=== PATIENT | female | born 1960 | race Caucasian/White ===

== ENCOUNTER → 2025-02-17 | Outpatient (CLI) | payer BC ==
--- NOTE | 2025-02-20 10:12 | CA ---
Transthoracic Echo Report Name: Fanny Galvez Age: 64 Gender: F : 1960 Exam Date: 02/17/2025 15:09 Exam Location: [facility] [facility] Ht (in): 66 Wt (lb): 175 Ordering Physician: Brett Castillo MD Attending/Referring Phys: Aminta Carter PAC Cardroom Supervisor Karmen Blankenship RDCS Procedure CPT: Indications: I51.7 Cardiomegaly Cardiac Hx: Technical Quality: Fair Contrast 1: Total Dose (mL): Contrast 2: Total Dose (mL): MEASUREMENTS (Male / Female) Normal Values 2D ECHO LV Diastolic Diameter PLAX 4.7 cm 4.2 - 5.9 / 3.9 - 5.3 cm LV Systolic Diameter PLAX 2.2 cm IVS Diastolic Thickness 0.9 cm 0.6 - 1.0 / 0.6 - 0.9 cm LVPW Diastolic Thickness 1.0 cm 0.6 - 1.0 / 0.6 - 0.9 cm LV Relative Wall Thickness 0.4 RV Internal Dim ED PLAX 3.4 cm LVOT Diameter 1.6 cm LV Diastolic Volume MOD BP 97.9 cm??? 67 - 155 / 56 - 104 cm??? LV Systolic Volume MOD BP 42.7 cm??? 22 - 58 / 19 - 49 cm??? LV Ejection Fraction MOD BP 56.4 % >= 55 % LV Cardiac Index MOD BP 1989.4 cm???/min???m??? LV Diastolic Volume MOD 4C 102.5 cm??? LV Systolic Volume MOD 4C 43.2 cm??? LV Ejection Fraction MOD 4C 57.8 % LV Cardiac Index MOD 4C 2135.7 cm???/min???m??? LV Diastolic Length 4C 8.2 cm LV Systolic Length 4C 6.5 cm LV Diastolic Volume MOD 2C 90.4 cm??? LV Systolic Volume MOD 2C 42.2 cm??? LV Ejection Fraction MOD 2C 53.4 % LV Cardiac Index MOD 2C 1739.8 cm???/min???m??? LV Diastolic Length 2C 7.9 cm LV Systolic Length 2C 6.6 cm LA Volume 65.8 cm??? 18 - 58 / 22 - 52 cm??? LA Volume Index 33.9 cm???/m??? 16 - 28 cm???/m??? DOPPLER LVOT Peak Velocity 161.5 cm/s LVOT Peak Gradient 10.4 mmHg LVOT Velocity Time Integral 37.2 cm LVOT Stroke Volume 76.7 cm??? LVOT Stroke Volume Index 40.6 ml/m??? LVOT Cardiac Index 2762.6 cm???/min???m??? MV Area PHT 4.4 cm??? Mitral E Point Velocity 79.0 cm/s Mitral A Point Velocity 106.3 cm/s Mitral E to A Ratio 0.7 MV Deceleration Time 170.7 ms MV E' Velocity 6.8 cm/s Mitral E to MV E' Ratio 11.6 TR Peak Velocity 253.9 cm/s TR Peak Gradient 25.8 mmHg FINDINGS Left Ventricle Left ventricular cavity size normal. Left ventricular wall thickness normal. Normal left ventricular systolic function with no obvious regional wall motion abnormalities. Left ventricular ejection fraction is estimated at 60 %. Grade 1 diastolic dysfunction. Right Ventricle Normal right ventricular size and function. Right ventricular systolic pressure within normal limits. Right Atrium Normal right atrial size. Left Atrium Mildly increased left atrial volume. Mitral Valve Structurally normal mitral valve. Mild mitral regurgitation. Aortic Valve Trileaflet aortic valve. No aortic stenosis. Trace aortic regurgitation. Tricuspid Valve Structurally normal tricuspid valve. Mild tricuspid regurgitation. Pulmonic Valve Structurally normal pulmonic valve. Trace pulmonic regurgitation. Pericardium No pericardial effusion. Aorta Normal size aortic root and proximal ascending aorta. CONCLUSIONS Indication: Cardiomegaly Normal LV size and function without wall motion normalities, left ventricular ejection fraction 55 to 60% Normal RV size and function Mildly enlarged left atrium Previewed by: Dr. Orlando Abreu MD (Electronically Signed) Final Date: 20 February 2025 10:11
== END | disposition home or self-care (01) ==
LOC: RADECHMAIN 15:07
PROVIDERS: ATTEND Family Medicine
DX: I51.7 Cardiomegaly (principal); I37.1 Nonrheumatic pulmonary valve insufficiency; I34.0 Nonrheumatic mitral (valve) insufficiency
CPT/HCPCS: 93306